=== PATIENT | female | born 2005 | race Caucasian/White ===

== ENCOUNTER 2024-01-29 13:20 | Emergency (ER) | payer OTHER, SELFPAY ==
[2024-01-29 13:21] VITALS: BP 139/90; PULSE 88; RESP 18; TEMP 36.1; O2SAT 99; BMI 38.5
--- NOTE | 2024-01-29 13:32 | EKG12_ITS ---
Test Reason : Blood Pressure : / mmHG Vent. Rate : 074 BPM Atrial Rate : 074 BPM P-R Int : 148 ms QRS Dur : 092 ms QT Int : 388 ms P-R-T Axes : 043 038 044 degrees QTc Int : 430 ms Normal sinus rhythm with sinus arrhythmia Normal ECG Confirmed by SERENE CARMONA, CHEIKH ([id number]), mapping editor CRYSTAL BENITES ([id number]) on 02/01/2024 2:15:21 PM Referred By: Confirmed By:MIKEL CAST MD
--- NOTE | 2024-01-29 13:32 | EDS_ITS ---
HPI <Fabian Maxwell MD - Last Filed: 02/02/24 08:35> History of Present Illness Chief Complaint: Chest Pain Narrative Narrative: 18-year-old female who denies significant past medical history presents with chest pain and left arm pain that she had started yesterday. She states that yesterday she began feeling strange chest pain with left arm numbness. She thought maybe she was having anxiety, so she went to work out with her friends at the gym, and it resolved. She was able to go to sleep and it did not return until today at around 1130, approximately 2 hours ago. Yesterday, she associated with nausea., Today she did not really have nausea and she states that her chest pain resolved, but her arm feels strange to her. She and her mother relate history that her father had a heart attack less than age 50. She denies any recent leg swelling, no daily medications. No other exacerbating or alleviating factors. PFSH <Fabian Maxwell MD - Last Filed: 02/02/24 08:35> PFSH Allergy/AdvReac Type Severity Reaction Status Date / Time No Known Allergies Allergy Verified 01/29/24 13:21 Social History Smoking Status: Current every day smoker tobacco type: cigarettes ROS <Fabian Maxwell MD - Last Filed: 02/02/24 08:35> ROS ED ROS Narrative Constitutional: No fever, no chills. HEENT: No sore throat. No neck pain. No loss of vision. No rhinorrhea. Cardiovascular: Positive chest pain. No palpitations. No pedal edema. Respiratory: No cough, no shortness of breath. Abdominal: No abdominal pain. No nausea currently. No vomiting. Genitourinary: No dysuria. No hematuria. Musculoskeletal: No myalgias. No arthralgias. Left arm feels strange. Neurologic: No headaches. No dizziness. No lightheadedness. Skin: No rash. No change in color. Psychiatric: No depression. No anxiety. EXAM <Fabian Maxwell MD - Last Filed: 02/02/24 08:35> Physical Exam Narrative Exam Narrative: Afebrile. Vital signs noted. HEENT: Normocephalic. Atraumatic. PERRL, EOMI. Neck soft and supple. No point tenderness or step off. Cardiovascular: Regular rate and rhythm. Positive murmur, no rubs, or gallops appreciated. Respiratory: No tachypnea. Lungs clear to auscultation bilaterally. Gastrointestinal: Abdomen soft, nontender, with normoactive bowel sounds. No rebound or guarding. Neurological: Awake. Alert. Nonfocal, nonlateralizing. Skin: No rash. Normal color. No pallor. Musculoskeletal: No pedal edema. Full range of motion extremities. Const Vital Signs: 01/29/24 13:21 01/29/24 13:28 01/29/24 13:42 Temperature 97 F L Temperature Source Temporal Pulse Rate 88 Respiratory Rate 18 Respiratory Effort Short of Breath Blood Pressure 139/90 H Blood Pressure Mean 106 Pulse Ox 99 Oxygen Delivery Method Room Air Room Air 01/29/24 14:21 01/29/24 15:00 01/29/24 16:00 Temperature Temperature Source Pulse Rate 75 69 65 Respiratory Rate 17 14 12 Respiratory Effort Blood Pressure 121/77 H 112/72 114/74 Blood Pressure Mean 91 85 87 Pulse Ox 98 99 96 Oxygen Delivery Method Room Air Room Air Room Air 01/29/24 16:33 Temperature 97.7 F L Temperature Source Pulse Rate 68 Respiratory Rate 19 H Respiratory Effort Blood Pressure 105/77 Blood Pressure Mean 86 Pulse Ox 99 Oxygen Delivery Method <Dr. Sheldon Mcgarry MD - Last Filed: 01/29/24 16:45> Physical Exam Const Vital Signs: 01/29/24 13:21 01/29/24 13:28 01/29/24 13:42 Temperature 97 F L Temperature Source Temporal Pulse Rate 88 Respiratory Rate 18 Respiratory Effort Short of Breath Blood Pressure 139/90 H Blood Pressure Mean 106 Pulse Ox 99 Oxygen Delivery Method Room Air Room Air 01/29/24 14:21 01/29/24 15:00 01/29/24 16:00 Temperature Temperature Source Pulse Rate 75 69 65 Respiratory Rate 17 14 12 Respiratory Effort Blood Pressure 121/77 H 112/72 114/74 Blood Pressure Mean 91 85 87 Pulse Ox 98 99 96 Oxygen Delivery Method Room Air Room Air Room Air 01/29/24 16:33 Temperature 97.7 F L Temperature Source Pulse Rate 68 Respiratory Rate 19 H Respiratory Effort Blood Pressure 105/77 Blood Pressure Mean 86 Pulse Ox 99 Oxygen Delivery Method <Fabian Maxwell MD - Last Filed: 02/02/24 08:35> Heart Score History: Slightly/Non-Suspicious ECG: Normal Age: </= 45 years Risk Factors: 1 or 2 Risk Factors Troponin: </= Normal Limit Score: 1 <Dr. Sheldon Mcgarry MD - Last Filed: 01/29/24 16:45> Heart Score Score: 1 MDM <Fabian Maxwell MD - Last Filed: 02/02/24 08:35> MDM MDM Narrative Medical decision making narrative: Differential diagnosis includes but not limited to acute coronary sy ndrome/STEMI/non-STEMI versus anxiety versus pulmonary embolism. Also the differential is pneumonia and pneumothorax. I have low suspicion for the latter 2 diagnoses because history and physical does not support this. I also have low suspicion for pulmonary embolism as she is PERC negative. D-dimer will be obtained regardless. Pulse ox is 99% on room air. I also have low suspicion for coronary artery disease based on her age, although she does have a family history. I reviewed her laboratory work and she has normal white count of 9.4, hemoglobin normal at 13.1, platelet count normal at 349. BMP is grossly unremarkable with a normal sodium of 139, potassium 3.5, BUN of 12 and creatinine 0.77, glucose is normal at 97. High-sensitivity troponin is less than 3. Chest x-ray 1 view int erpreted by myself independently shows no pneumothorax, no pneumonia. I reviewed the radiology report which confirms my independent interpretation. D- dimer is negative, hence I think there is low suspicion for pulmonary embolism. At point in time, her second troponin is still pending. As long as this is negative, I feel she can be discharged to follow-up with her primary care provider. Patient signed out to Dr. Mcgarry to check the second troponin. She is in stable condition. History & Record Review Discussion w/independent historian: Patient and Family (Mother) Additional record(s) reviewed:: No prior records Lab Data Attestation: I reviewed the patient's lab results. Labs: Laboratory Results - last 24 hr 01/29/24 01/29/24 01/29/24 13:35 14:20 15:40 WBC 9.4 RBC 4.64 Hgb 13.1 Hct 39.4 MCV 84.9 MCH 28.2 MCHC 33.2 RDW Std Deviation 39.6 RDW Coeff of Héctor 12.9 Plt Count 349 MPV 8.7 Immature Gran % (Auto) 0.400 Neut % (Auto) 67.5 Lymph % (Auto) 25.3 [place] % (Auto) 6.0 Eos % (Auto) 0.4 Baso % (Auto) 0.4 Absolute Neuts (auto) 6.4 Absolute Lymphs (auto) 2.39 Nucleated RBC % 0 D-Dimer Quant (PE/DVT) < 0.27 L Sodium 139 Potassium 3.5 Chloride 107 Carbon Dioxide 26.0 Anion Gap 6 BUN 12 Creatinine 0.77 Estim Creat Clear Calc 170.29 Est GFR (MDRD) Af Amer 122 Est GFR (MDRD) Non-Af 101 BUN/Creatinine Ratio 15.5 Glucose 97 Calcium 9.2 Troponin I High Sens < 3 L 3 Radiography Diagnostic Testing: Clinical Impression(s) from Imaging Studies Chest X-Ray 01/29/24 13:52 IMPRESSION: No acute thoracic pathology. Electronically Signed: Santi Smith MD at 14:08 EDT , <Dr. Sheldon Mcgarry MD - Last Filed: 01/29/24 16:45> [facility] Lab Data Labs: Laboratory Results - last 24 hr 01/29/24 01/29/24 01/29/24 13:35 14:20 15:40 WBC 9.4 RBC 4.64 Hgb 13.1 Hct 39.4 MCV 84.9 MCH 28.2 MCHC 33.2 RDW Std Deviation 39.6 RDW Coeff of Héctor 12.9 Plt Count 349 MPV 8.7 Immature Gran % (Auto) 0.400 Neut % (Auto) 67.5 Lymph % (Auto) 25.3 [place] % (Auto) 6.0 Eos % (Auto) 0.4 Baso % (Auto) 0.4 Absolute Neuts (auto) 6.4 Absolute Lymphs (auto) 2.39 Nucleated RBC % 0 D-Dimer Quant (PE/DVT) < 0.27 L Sodium 139 Potassium 3.5 Chloride 107 Carbon Dioxide 26.0 Anion Gap 6 BUN 12 Creatinine 0.77 Estim Creat Clear Calc 170.29 Est GFR (MDRD) Af Amer 122 Est GFR (MDRD) Non-Af 101 BUN/Creatinine Ratio 15.5 Glucose 97 Calcium 9.2 Troponin I High Sens < 3 L 3 Radiography Diagnostic Testing: Clinical Impression(s) from Imaging Studies Chest X-Ray 01/29/24 13:52 IMPRESSION: No acute thoracic pathology. Electronically Signed: Santi Smith MD at 14:08 EDT , Treatment and Re-Evaluation Comments:: Patient checked out to me for repeat/delta troponin. The repeat troponin is normal with a result of 3. The patient is asymptomatic. Answered all questions at the bedside, stable for discharge home close outpatient follow- up. Discharge Plan Triage Chief Complaint: Chest Pain ED Provider: Fabian Maxwell Dx/Rx/DC Orders Clinical Impression: Chest pain, Left arm pain Instructions: ED Chest Pain, Uncertain Cause Stand Alone Forms: Work / School Excuse Primary Care Provider: Care Physician,No Primary Referrals: Bernardo Gaines MD [Med Staff - Active Staff] - 3-5 Days Care Physician,No Primary [Primary Care Provider] - Print Language: Lithuanian Disposition Disposition: Home, Self Care Discharge Date/Time: 01/29/24 16:49
--- NOTE | 2024-01-29 13:34 | ED.RN ---
NO OLD EKGS
[2024-01-29 13:52] LABS: Absolute Lymphocyte Count 2.39 X10^3/uL (0.83-4.51); Absolute Neutrophil Count 6.4 X10^3/uL (2.0-7.7); Basophil# 0.04 X10^3/uL; Basophil% 0.4 % (0-1); Eosinophil# 0.04 X10^3/uL; Eosinophils% 0.4 % (0-5); Hematocrit 39.4 % (37-47); Hemoglobin 13.1 g/dL (12.0-15.0); Lymphocyte # 2.39 X10^3/ul (0.83-4.51); Lymphocyte % 25.3 % (19-41); Mean Corp Hgb Conc 33.2 g/dL (32-36); Mean Corpuscular Hgb 28.2 pg (27.0-32.0); Mean Corpuscular Volume 84.9 fL (81-99); Mean Platelet Vol. 8.7 fl (6.2-12.0); Monocyte# 0.57 X10^3/uL; NRBC Flagged by Analyzer 0 % (0-5); Neutrophil # 6.35 X10^3/uL (2.7-7.7); Neutrophil % 67.5 % (47-70); Platelet Count 349 K/mm3 (150-450); RBC Distribution Width CV 12.9 % (11.6-14.6); RBC Distribution Width SD 39.6 fl (35.1-43.9); Red Blood Count 4.64 M/mm3 (4.2-5.4); White Blood Count 9.4 K/mm3 (4.4-11.0)
--- NOTE | 2024-01-29 13:52 | RAD_ITS ---
STUDY: X-RAY CHEST REASON FOR EXAM: Female, 18 years old. Chest pain TECHNIQUE: Frontal view of the chest COMPARISON: None. FINDINGS: The lungs are clear. There are no pleural effusions. There is no pneumothorax. The heart is normal in size. The visualized osseous structures are within normal limits. RAD/Chest 1 View (Portable) IMPRESSION: No acute thoracic pathology. Electronically Signed: Santi Smith MD at 14:08 EDT ,
[2024-01-29 14:03] LABS: Anion Gap 6 (5-15); BUN 12 mg/dL (7-18); BUN/Creat Ratio 15.5 RATIO (10-20); Calcium,Total 9.2 mg/dL (8.5-10.1); Chloride 107 mmol/L (98-107); Creatinine, Serum 0.77 mg/dL (0.55-1.02); EST Glomerular Filtration Rate 101 mL/min (>60); Est Glom Filt Rate - Afr Amer 122 mL/min (>60); Estimated Creatinine Clearance 170.29 ml/min; Glucose 97 mg/dL (74-106); Potassium 3.5 mmol/L (3.5-5.1); Sodium Level 139 mmol/L (136-145); Troponin-I HS (w/2H Reflex) < 3 pg/mL (3.0-54.0)
[2024-01-29 14:21] VITALS: BP 121/77; PULSE 75; RESP 17; O2SAT 98
[2024-01-29 14:40] LABS: D-Dimer Quantitative (DVT/PE) < 0.27 FEU/ug/m (0.27-0.49)
[2024-01-29 15:00] VITALS: BP 112/72; PULSE 69; RESP 14; O2SAT 99
[2024-01-29 15:42] LABS: Reflex Troponin-HS? (from REC) Y
[2024-01-29 16:00] VITALS: BP 114/74; PULSE 65; RESP 12; O2SAT 96
[2024-01-29 16:17] LABS: Troponin-I HS 3 pg/mL (3.0-54.0)
[2024-01-29 16:33] VITALS: BP 105/77; PULSE 68; RESP 19; TEMP 36.5; O2SAT 99
== END 2024-01-29 16:49 | disposition home or self-care (01) ==
PROVIDERS: Emergency Provider Emergency Medicine; Visit Provider Emergency Medicine
DX: R07.9 Chest pain, unspecified (principal); F17.210 Nicotine dependence, cigarettes, uncomplicated; M79.602 Pain in left arm
CPT/HCPCS: 71045; 80048; 84484; 85025; 85379; 93005; 99283; A4216

== ENCOUNTER → 2024-10-05 | Outpatient (CLI) | payer OTHER, SELFPAY ==
[2024-10-05 14:17] LABS: HIV Nonreactive (Nonreactive); Hepatitis B Surface Antigen Nonreactive (Nonreactive); Syphilis Antibodies Nonreactive (Nonreactive)
[2024-10-05 17:05] LABS: Hepatitis C Antibody Nonreactive (Nonreactive)
[2024-10-07 11:09] LABS: Chlamydia By Nucleic Acid AMP Negative (Negative); Gonococcus By Nucleic Acid AMP Negative (Negative)
[2024-10-10 08:43] LABS: HPV Reflexed? NOT INDICATED
== END | disposition home or self-care (01) ==
PROVIDERS: Referring Provider Nurse Practitioner Family; Visit Provider Nurse Practitioner Family
DX: Z11.3 Encounter for screening for infections with a predominantly sexual mode of transmission (principal); Z12.4 Encounter for screening for malignant neoplasm of cervix
CPT/HCPCS: 36415; 86695; 86696; 86703; 86780; 86803; 87340; 87491; 87591; 88175; G0145